=== PATIENT | male | born 1985 | race Caucasian/White ===

== ENCOUNTER 2017-01-02 19:36 | Inpatient (IN) | payer OTHER ==
[2017-01-02 20:05] VITALS: BMI 21.8
--- NOTE | 2017-01-02 22:30 | HP ---
COWS - Scale Resting Pulse: 0= [place] 80 or Below Sweatin= Chills/Flushing Restless Observation: 1= Difficult to Sit Still Pupil Size: 1= Pupils >than Normal Bone or Joint Aches: 1= Mild Discomfort Runny Nose/ Eye Tearin= Runny Nose/Eyes GI Upset > 30mins: 2= Nausea/Diarrhea Tremor Observation: 2= Slight Tremor Visible Yawning Observation: 2= >3x During Session Anxiety or Irritability: 2=Irritable/Anxious Goose Flesh Skin: 0=Smooth Skin COWS Score: 14 Admission ROS S - HPI Chief Complaint: WITHDRAWAL SYMPTOMS Allergies/Adverse Reactions: Allergies Allergy/AdvReac Type Severity Reaction Status Date / Time No Known Allergies Allergy Verified 07/03/12 03:34 History of Present Illness: 31 y.o. man with an extensive history of drug dependence is here seeking detox. He denies any recent rehab/detox admissions. He reports his longest period of abstinence has been 8 months. Exam Limitations: No Limitations - Ebola screening Have you traveled outside of the country in the last 21 days: No Have you had contact with anyone from an Ebola affected area: No Have you been sick,other than usual withdrawal symptoms: No Do you have a fever: No - Review of Systems Constitutional: Chills, Diaphoresis, Loss of Appetite, Unintentional Wgt. Loss EENT: reports: Tearing, Nose Congestion Respiratory: reports: No Symptoms reported Cardiac: reports: No Symptoms Reported GI: reports: Diarrhea, Indigestion, Abdominal cramping : reports: No Symptoms Reported Musculoskeletal: reports: Back Pain, Muscle Pain Integumentary: reports: No Symptoms Reported Neuro: reports: No Symptoms reported Endocrine: reports: No Symptoms Reported Hematology: reports: No Symptoms Reported Psychiatric: reports: Mood/Affect Appropiate, Anxious, Depressed Other Systems: Reviewed and Negative Patient History - Patient Medical History Hx Anemia: No Hx Asthma: No Hx Chronic Obstructive Pulmonary Disease (COPD): No Hx Cancer: No Hx Cardiac Disorders: No Hx Congestive Heart Failure: No Hx Hypertension: No Hx Hypercholesterolemia: No Hx Pacemaker: No HX Cerebrovascular Accident: No Hx Seizures: No Hx Dementia: No Hx Diabetes: No Hx Gastrointestinal Disorders: Yes (Dyspepsia ) Hx Liver Disease: No Hx Genitourinary Disorders: No Hx Sexually Transmitted Disorders: No Hx Renal Disease (ESRD): No Hx Thyroid Disease: No Hx Human Immunodeficiency Virus (HIV): No Hx Hepatitis C: No Hx Depression: Yes Hx Suicide Attempt: No Hx Bipolar Disorder: No Hx Schizophrenia: No - Patient Surgical History Past Surgical History: Yes Hx Appendectomy: Yes (2016) Anesthesia Reaction: No - PPD History Previous Implant?: Yes Documented Results: Negative w/o proof Date: 07/05/12 PPD to be Administered?: Yes - Reproductive History Patient is a Female of Child Bearing Age (11 -55 yrs old): No - Smoking Cessation Smoking history: Current every day smoker Have you smoked in the past 12 months: Yes Aproximately how many cigarettes per day: 30 Hx Chewing Tobacco Use: No Initiated information on smoking cessation: Yes 'Breaking Loose' booklet given: 01/02/17 - Substance & Tx. History Hx Alcohol Use: No Hx Substance Use: Yes Substance Use Type: Cocaine, Heroin, Marijuana Hx Substance Use Treatment: Yes (Denies recent detox/rehab services ) - Substances Abused Heroin Route: Injection Frequency: Daily Amount used: 2-3 bundles Age of first use: 24 Date of Last Use: 01/02/17 Cocaine Route: Smoking Frequency: 3-6 times per week Amount used: 1gm Age of first use: 18 Date of Last Use: 01/01/17 Marijuana/Hashish Route: Smoking Frequency: 1-3 times last 30 days Amount used: 1gm Age of first use: 14 Date of Last Use: 12/31/16 Family Disease History - Family Disease History Family Disease History: Diabetes: Mother, Heart Disease: Mother, CA: Father Admission Physical Exam S - Vital Signs Vital Signs: Vital Signs - 24 hr 01/02/17 20:03 Temperature 97.4 F L Pulse Rate 72 Respiratory 20 Rate Blood Pressure 136/71 - Physical General Appearance: Yes: No Apparent Distress, Nourished, Appropriately Dressed HEENTM: Yes: Hearing grossly Normal, Normal ENT Inspection, Normocephalic, Normal Voice Respiratory: Yes: Chest Non-Tender, Lungs Clear, Normal Breath Sounds, No Respiratory Distress, No Accessory Muscle Use Neck: Yes: No masses,lesions,Nodules, Trachea in good position Breast: Yes: Breast Exam Deferred Cardiology: Yes: Regular Rhythm, Regular Rate Abdominal: Yes: Normal Bowel Sounds, Non Tender Genitourinary: Yes: Other (No complaints reporte) Back: Yes: Normal Inspection Musculoskeletal: Yes: full range of Motion, Gait Steady, Pelvis Stable, Back pain Extremities: Yes: Normal Capillary Refill, Normal Inspection Neurological: Yes: pin drafter II-XII NML intact, Fully Oriented, Alert, Normal Mood/ Affect, Normal Response Integumentary: Yes: Normal Color, Dry, Warm, Track [place] Lymphatic: Yes: Within Normal Limits - Diagnostic (1) Cannabis dependence Current Visit: Yes Status: Acute (2) Cocaine dependence Current Visit: Yes Status: Acute (3) Opioid dependence with withdrawal Current Visit: Yes Status: Chronic (4) Nicotine dependence Current Visit: Yes Status: Chronic Cleared for Admission [facility] - Detox or Rehab [facility] Level of Care: Medically Managed Detox Regimen/Protocol: Methadone [facility] Breath Alcohol Content Breath Alcohol Content: 0 Urine Drug Screen - Results Drug Screen Negative: No Urine Drug Screen Results: THC-Marijuana, OTTO-Cocaine, OPI-Opiates
[2017-01-02] MEDS ORDERED: MENTHOL/PHENOL 1 EACH UD MM PRN (22:42)
[2017-01-02] MEDS ORDERED: ACETAMINOPHEN 325 MG TABLET (FP) PO PRN (22:42)
[2017-01-02] MEDS ORDERED: LOPERAMIDE HCL 2 MG CAPSULE PO PRN (22:42)
[2017-01-02] MEDS ORDERED: MAG HYDROX/AL HYDROX/SIMETH 30 ML UNIT-DOSE CUP PO PRN (22:42)
[2017-01-02] MEDS ORDERED: guaiFENesin/D-METHORPHAN HB 10 ML UNIT-DOSE CUPS PO PRN (22:42)
[2017-01-02] MEDS ORDERED: P-EPHED 60MG/TRIPROLIDI 2.5MG TABLET PO PRN (22:42)
[2017-01-02] MEDS ORDERED: MAGNESIUM CITRATE 300 ML BOTTLE PO PRN (22:42)
[2017-01-02] MEDS ORDERED: IBUPROFEN 400 MG TABLET (FP) PO PRN (22:42)
[2017-01-02] MEDS ORDERED: hydrOXYzine PAMOATE 50 MG CAPSULE (FP) PO PRN (22:42)
[2017-01-02] MEDS ORDERED: MAGNESIUM HYDROX 2400MG/30ML ORAL SUSPENSION 30 ML CUP PO PRN (22:42)
[2017-01-02] MEDS ORDERED: METHADONE HCL 10 MG TABLET (FOR DETOX USE ONLY) PO ONE ×2 (23:00→23:54)
[2017-01-03] MEDS: diazePAM 5 MG TABLET PO PRN ×4 (00:02→21:14)
[2017-01-03 02:26] LABS: URINE APPEARANCE CLEAR; URINE BILIRUBIN NEGATIVE (NEGATIVE); URINE BLOOD NEGATIVE (NEGATIVE); URINE COLOR YELLOW; URINE GLUCOSE (UA) NEGATIVE (NEGATIVE); URINE KETONE NEGATIVE (NEGATIVE); URINE LEUK ESTERASE NEGATIVE (NEGATIVE); URINE NITRITE NEGATIVE (NEGATIVE); URINE PROTEIN NEGATIVE (NEGATIVE); URINE UROBILINOGEN NEGATIVE mg/dL (0.2-1.0)
--- NOTE | 2017-01-03 08:49 | PN ---
BHS COWS - Scale Resting Pulse: 0= [place] 80 or Below Sweatin=Flushed/Facial Moisture Restless Observation: 1= Difficult to Sit Still Pupil Size: 0= Normal to Room Light Bone or Joint Aches: 2= Severe Diffuse Aches Runny Nose/ Eye Tearin= Runny Nose/Eyes GI Upset > 30mins: 0= None Tremor Observation of Outstretched Hands: 2= Slight Tremor Visible Yawning Observation: 2= >3x During Session Anxiety or Irritability: 2=Irritable/Anxious Goose Flesh Skin: 0=Smooth Skin COWS Score: 13 BHS Progress Note (SOAP) Subjective: anxiety sweats mild shakes interrupted sleep Objective: 01/03/17 10:07 Vital Signs Temperature 98.1 F 01/03/17 06:28 Pulse Rate 60 01/03/17 06:28 Respiratory Rate 18 01/03/17 06:28 Blood Pressure 109/56 01/03/17 06:28 O2 Sat by Pulse Oximetry (%) Laboratory Tests 01/02/17 20:00 Urine Color Yellow Urine Appearance Clear Urine pH 5.0 Urine Protein Negative Urine Glucose (UA) Negative Urine Ketones Negative Urine Blood Negative Urine Nitrite Negative Urine Bilirubin Negative Urine Urobilinogen Negative Ur Leukocyte Esterase Negative rest of labs pending awake/alert ambulating no acute distress Assessment: 01/03/17 10:07 withdrawal sx Plan: continue detox increase fluids labs pending
[2017-01-03] MEDS ORDERED: METHADONE HCL 10 MG TABLET (FOR DETOX USE ONLY) PO ONE (10:00)
[2017-01-03] MEDS: PRENATAL VITAMINS W/ FOLIC ACID TABLET (FP) PO SCH (10:01)
[2017-01-03] MEDS: NICOTINE 21 MG/24 HOURS TOPICAL PATCH TD SCH (10:02)
[2017-01-03 10:21] LABS: MCHC 34.2 g/dl (32.0-35.9); MEAN CELL VOLUME 84.8 fl (80-96); MEAN PLT VOLUME 7.9 fl (7.5-11.1); PLATELET COUNT 247 K/MM3 (134-434); WHITE BLOOD COUNT 6.5 K/mm3 (4.0-10.0)
[2017-01-03 10:40] LABS: ALBUMIN 3.4 g/dl (3.4-5.0); ANION GAP 7 (8-16); CALCIUM 8.9 mg/dL (8.5-10.1); CO2 29 mmol/L (21-32); GLUCOSE,RANDOM 101 mg/dL (74-106)
[2017-01-03 10:45] LABS: ALK PHOS 47 U/L (45-117); BILIRUBIN,TOTAL 0.5 mg/dL (0.2-1.0); CREATININE 0.9 mg/dL (0.7-1.3); SGOT/AST 10 U/L (15-37); SGPT/ALT 15 U/L (12-78); TOT PROT 6.3 g/dl (6.4-8.2)
[2017-01-03 11:28] LABS: HIV 1 & 2 AB NEGATIVE; HIV 1 AGp24 NEGATIVE
--- NOTE | 2017-01-03 12:26 | EKG ---
Test Reason : Blood Pressure : / mmHG Vent. Rate : 066 BPM Atrial Rate : 066 BPM P-R Int : 148 ms QRS Dur : 090 ms QT Int : 410 ms P-R-T Axes : 074 078 063 degrees QTc Int : 429 ms NORMAL SINUS RHYTHM WITH SINUS ARRHYTHMIA MINIMAL VOLTAGE CRITERIA FOR LVH, MAY BE NORMAL VARIANT BORDERLINE ECG NO PREVIOUS ECGS AVAILABLE Confirmed by KANE PERALTA, LY ([id number]) on 01/03/2017 12:26:04 PM Referred By: Confirmed By:LY MIDDLETON MD
--- NOTE | 2017-01-03 16:00 | CONSULT ---
[facility] Psychiatric Consult - Data Date of interview: 01/03/17 Admission source: [facility] Identifying data: Readmission to [facility] for this 31 y/o male seeking detox treatment on for heroin dependence.Patient is single without children,domiciled,unemployed and supported by relatives. Substance Abuse History: This section of [facility] report is discussed with the patient in this interview.He confirmed the data. - Smoking Cessation. Smoking history: Current every day smoker. Have you smoked in the past 12 months: Yes. Aproximately how many cigarettes per day: 30. Hx Chewing Tobacco Use: No. Initiated information on smoking cessation: Yes. 'Breaking Loose' booklet given : 01/02/17. - Substance & Tx. History. Hx Alcohol Use: No. Hx Substance Use: Yes. Substance Use Type: Cocaine, Heroin, Marijuana. Hx Substance Use Treatment: Yes (Denies recent detox/rehab services ). - Substances Abused. Heroin. Route: Injection. Frequency: Daily. Amount used: 2-3 bundles. Age of first use: 24. Date of Last Use: 01/02/17. Cocaine. Route: Smoking. Frequency: 3-6 times per week. Amount used: 1gm. Age of first use: 18. Date of Last Use: 01/01/17. Marijuana/Hashish. Route: Smoking. Frequency: 1-3 times last 30 days. Amount used: 1gm. Age of first use: 14. Date of Last Use : 12/31/16 Medical History: Patient endorses good general health. Psychiatric History: Patient denies history of psychiatric hospitalizations.He indicates,however,that he is prescribed paxil and klonopin (from a primary care physician).Diagnosed with MDD.Mr Iraheta is known to Dr Chand ([facility]) .Patient denies history of suicide attempts. Physical/Sexual Abuse/Trauma History: Patient denies. Additional Comment: Urine Drug Screen Results: THC-Marijuana, OTTO-Cocaine, OPI- Opiates.Noted. Mental Status Exam - Mental Status Exam Alert and Oriented to: Time, Place, Person Cognitive Function: Good Patient Appearance: Well Groomed Mood: Hopeful, Euthymic Affect: Appropriate, Normal Range Patient Behavior: Fatigued, Appropriate, Cooperative Speech Pattern: Clear Voice Loudness: Normal Thought Process: Goal Oriented Thought Disorder: Not Present Hallucinations: Denies Suicidal Ideation: Denies Homicidal Ideation: Denies Insight/Judgement: Poor Sleep: Well Appetite: Good Muscle strength/Tone: Normal Gait/Station: Normal Psychiatric Findings - Problem List ([place] 1, 2,3) (1) Cocaine dependence Current Visit: Yes Status: Acute (2) Opioid dependence with withdrawal Current Visit: Yes Status: Acute (3) Cannabis dependence Current Visit: Yes Status: Acute (4) Nicotine dependence Current Visit: Yes Status: Acute (5) Depressive disorder Current Visit: Yes Status: Chronic Comment: History reported by patient.On medications. - Initial Treatment Plan Initial Treatment Plan: Psychoeducation.Detoxification.Paxil 20 mg po daily.Patient is informed of potential for sexual dysfunction and suicidal ideation.He endorses paxil as well tolerated and efficacious.Wants to stay on that drug.Observation.
[2017-01-03] MEDS: NICOTINE POLACRILEX 4 MG GUM BC PRN (19:44)
[2017-01-03] MEDS: diphenhydrAMINE HCL 50 MG CAPSULE PO PRN (21:14)
[2017-01-03] MEDS: THIAMINE HCL 100 MG TABLET (FP) PO SCH (21:14)
[2017-01-04] MEDS: diazePAM 5 MG TABLET PO PRN ×5 (03:08→21:35)
[2017-01-04] MEDS: NICOTINE 21 MG/24 HOURS TOPICAL PATCH TD SCH (09:59)
[2017-01-04] MEDS: PRENATAL VITAMINS W/ FOLIC ACID TABLET (FP) PO SCH (09:59)
[2017-01-04] MEDS ORDERED: METHADONE HCL 5 MG TABLET (FOR DETOX USE ONLY) PO ONE (10:00)
[2017-01-04] MEDS: PARoxetine HCL 20 MG TABLET (FP) PO SCH (10:01)
--- NOTE | 2017-01-04 11:23 | PN ---
BHS COWS - Scale Resting Pulse: 0= [place] 80 or Below Sweatin=Flushed/Facial Moisture Restless Observation: 0= Sits Still Pupil Size: 0= Normal to Room Light Bone or Joint Aches: 1= Mild Discomfort Runny Nose/ Eye Tearin= Runny Nose/Eyes GI Upset > 30mins: 1= Stomach Cramp Tremor Observation of Outstretched Hands: 2= Slight Tremor Visible Yawning Observation: 2= >3x During Session Anxiety or Irritability: 2=Irritable/Anxious Goose Flesh Skin: 3=Piloerection COWS Score: 15 BHS Progress Note (SOAP) Subjective: Stomach Cramping, Interrupted sleep, Sweating. Objective: PT. A & O X 3. NO ACUTE DISTRESS. 01/04/17 11:19 Vital Signs Temperature 99.0 F 01/04/17 10:00 Pulse Rate 75 01/04/17 10:00 Respiratory Rate 16 01/04/17 10:00 Blood Pressure 138/68 01/04/17 10:00 O2 Sat by Pulse Oximetry (%) Laboratory Tests 01/02/17 01/02/17 01/03/17 06:30 20:00 06:30 WBC 6.5 RBC 3.75 L D Hgb 10.9 L D Hct 31.8 L D MCV 84.8 MCH 29.0 MCHC 34.2 RDW 13.0 Plt Count 247 MPV 7.9 D Sodium Potassium Chloride Carbon Dioxide Anion Gap BUN Creatinine Creat Clearance w eGFR Random Glucose Calcium Total Bilirubin AST ALT Alkaline Phosphatase Total Protein Albumin Urine Color Yellow Urine Appearance Clear Urine pH 5.0 Ur Specific [place] 1.025 Urine Protein Negative Urine Glucose (UA) Negative Urine Ketones Negative Urine Blood Negative Urine Nitrite Negative Urine Bilirubin Negative Urine Urobilinogen Negative Ur Leukocyte Esterase Negative RPR Titer Hepatitis C Antibody <0.1 HIV 1&2 Antibody Screen HIV P24 Antigen 01/03/17 01/03/17 01/03/17 06:30 06:30 06:30 WBC RBC Hgb Hct MCV MCH MCHC RDW Plt Count MPV Sodium 142 Potassium 4.4 Chloride 106 Carbon Dioxide 29 Anion Gap 7 L BUN 14 Creatinine 0.9 Creat Clearance w eGFR > 60 Random Glucose 101 Calcium 8.9 Total Bilirubin 0.5 AST 10 L D ALT 15 D Alkaline Phosphatase 47 D Total Protein 6.3 L D Albumin 3.4 D Urine Color Urine Appearance Urine pH Ur Specific [place] Urine Protein Urine Glucose (UA) Urine Ketones Urine Blood Urine Nitrite Urine Bilirubin Urine Urobilinogen Ur Leukocyte Esterase RPR Titer Nonreactive Hepatitis C Antibody HIV 1&2 Antibody Screen Negative HIV P24 Antigen Negative LABS NOTED. Assessment: 01/04/17 11:20 WITHDRAWAL SYMPTOMS. Plan: CONTINUE DETOX. FERROUS SULFATE, 325 MG PO BID WITH MEALS.
[2017-01-04] MEDS: FERROUS SO4 325 MG TABLET (FP) PO SCH (16:58)
[2017-01-04] MEDS: NICOTINE POLACRILEX 4 MG GUM BC PRN (16:59)
[2017-01-04] MEDS: THIAMINE HCL 100 MG TABLET (FP) PO SCH (21:35)
[2017-01-04] MEDS: diphenhydrAMINE HCL 50 MG CAPSULE PO PRN (21:35)
[2017-01-05] MEDS: diazePAM 5 MG TABLET PO PRN ×4 (05:38→22:25)
[2017-01-05] MEDS: FERROUS SO4 325 MG TABLET (FP) PO SCH ×2 (08:46→17:42)
[2017-01-05] MEDS ORDERED: METHADONE HCL 5 MG TABLET (FOR DETOX USE ONLY) PO ONE (10:00)
[2017-01-05] MEDS: PARoxetine HCL 20 MG TABLET (FP) PO SCH (10:11)
[2017-01-05] MEDS: PRENATAL VITAMINS W/ FOLIC ACID TABLET (FP) PO SCH (10:11)
[2017-01-05] MEDS: NICOTINE 21 MG/24 HOURS TOPICAL PATCH TD SCH (10:11)
[2017-01-05] MEDS: NICOTINE POLACRILEX 4 MG GUM BC PRN ×2 (10:14→22:48)
--- NOTE | 2017-01-05 11:23 | PN ---
BHS Progress Note (SOAP) Subjective: sweats interrupted sleep anxious Objective: 01/05/17 11:23 Vital Signs Temperature 97.9 F 01/05/17 10:00 Pulse Rate 100 H 01/05/17 10:00 Respiratory Rate 20 01/05/17 10:00 Blood Pressure 121/76 01/05/17 10:00 O2 Sat by Pulse Oximetry (%) awake/alert ambulating no acute distress Assessment: 01/05/17 11:23 withdrawal sx Plan: continue detox increase fluids
[2017-01-05] MEDS: THIAMINE HCL 100 MG TABLET (FP) PO SCH (22:25)
[2017-01-05] MEDS: diphenhydrAMINE HCL 50 MG CAPSULE PO PRN (22:25)
[2017-01-06] MEDS: FERROUS SO4 325 MG TABLET (FP) PO SCH ×2 (08:16→17:16)
[2017-01-06] MEDS ORDERED: METHADONE HCL 10 MG TABLET (FOR DETOX USE ONLY) PO ONE (10:00)
[2017-01-06] MEDS: PRENATAL VITAMINS W/ FOLIC ACID TABLET (FP) PO SCH (10:04)
[2017-01-06] MEDS: PARoxetine HCL 20 MG TABLET (FP) PO SCH (10:05)
[2017-01-06] MEDS: NICOTINE 21 MG/24 HOURS TOPICAL PATCH TD SCH (10:06)
[2017-01-06] MEDS: NICOTINE POLACRILEX 4 MG GUM BC PRN ×3 (10:07→19:37)
--- NOTE | 2017-01-06 14:09 | PN ---
BHS Progress Note (SOAP) Subjective: Sweating,interrupted sleep,restless Objective: 01/06/17 14:08 Vital Signs - 8 hr 01/06/17 09:51 Temperature 97.7 F Pulse Rate 90 Respiratory 16 Rate Blood Pressure 121/78 Laboratory Last Values WBC 6.5 K/mm3 (4.0-10.0) 01/03/17 06:30 RBC 3.75 M/mm3 (4.00-5.60) L D 01/03/17 06:30 Hgb 10.9 GM/dL (11.7-16.9) L D 01/03/17 06:30 Hct 31.8 % (35.4-49) L D 01/03/17 06:30 MCV 84.8 fl (80-96) 01/03/17 06:30 MCH 29.0 pg (25.7-33.7) 01/03/17 06:30 MCHC 34.2 g/dl (32.0-35.9) 01/03/17 06:30 RDW 13.0 % (11.9-15.9) 01/03/17 06:30 Plt Count 247 K/MM3 (134-434) 01/03/17 06:30 MPV 7.9 fl (7.5-11.1) D 01/03/17 06:30 Sodium 142 mmol/L (136-145) 01/03/17 06:30 Potassium 4.4 mmol/L (3.5-5.1) 01/03/17 06:30 Chloride 106 mmol/L (98-107) 01/03/17 06:30 Carbon Dioxide 29 mmol/L (21-32) 01/03/17 06:30 Anion Gap 7 (8-16) L 01/03/17 06:30 BUN 14 mg/dL (7-18) 01/03/17 06:30 Creatinine 0.9 mg/dL (0.7-1.3) 01/03/17 06:30 Creat Clearance w eGFR > 60 (>60) 01/03/17 06:30 Random Glucose 101 mg/dL (74-106) 01/03/17 06:30 Calcium 8.9 mg/dL (8.5-10.1) 01/03/17 06:30 Total Bilirubin 0.5 mg/dL (0.2-1.0) 01/03/17 06:30 AST 10 U/L (15-37) L D 01/03/17 06:30 ALT 15 U/L (12-78) D 01/03/17 06:30 Alkaline Phosphatase 47 U/L (45-117) D 01/03/17 06:30 Total Protein 6.3 g/dl (6.4-8.2) L D 01/03/17 06:30 Albumin 3.4 g/dl (3.4-5.0) D 01/03/17 06:30 Urine Color Yellow 01/02/17 20:00 Urine Appearance Clear 01/02/17 20:00 Urine pH 5.0 (5.0-8.0) 01/02/17 20:00 Ur Specific [place] 1.025 (1.005-1.025) 01/02/17 20:00 Urine Protein Negative (NEGATIVE) 01/02/17 20:00 Urine Glucose (UA) Negative (NEGATIVE) 01/02/17 20:00 Urine Ketones Negative (NEGATIVE) 01/02/17 20:00 Urine Blood Negative (NEGATIVE) 01/02/17 20:00 Urine Nitrite Negative (NEGATIVE) 01/02/17 20:00 Urine Bilirubin Negative (NEGATIVE) 01/02/17 20:00 Urine Urobilinogen Negative mg/dL (0.2-1.0) 01/02/17 20:00 Ur Leukocyte Esterase Negative (NEGATIVE) 01/02/17 20:00 RPR Titer Nonreactive (NONREACTIVE) 01/03/17 06:30 Hepatitis C Antibody <0.1 s/co ratio (0.0-0.9) 01/02/17 06:30 HIV 1&2 Antibody Screen Negative 01/03/17 06:30 HIV P24 Antigen Negative 01/03/17 06:30 labs noted Assessment: 01/06/17 14:09 Withdrawal sx. Plan: Continue detox
[2017-01-06] MEDS: THIAMINE HCL 100 MG TABLET (FP) PO SCH (22:05)
[2017-01-06] MEDS: diphenhydrAMINE HCL 50 MG CAPSULE PO PRN (22:05)
[2017-01-07] MEDS ORDERED: METHADONE HCL 5 MG TABLET (FOR DETOX USE ONLY) PO ONE (06:00)
[2017-01-07] MEDS: FERROUS SO4 325 MG TABLET (FP) PO SCH (08:20)
--- NOTE | 2017-01-07 09:07 | DS ---
[facility] Detox Discharge Summary Admission Date: 01/02/17 Discharge Date: 01/07/17 - History Present History: Cannabis Dependence, Cocaine Dependence, Opioid Dependence Pertinent Past History: Mood disorder - Physical Exam Results Vital Signs: Vital Signs Temperature 97.9 F 01/07/17 06:00 Pulse Rate 67 01/07/17 06:00 Respiratory Rate 18 01/07/17 06:00 Blood Pressure 132/75 01/07/17 06:00 O2 Sat by Pulse Oximetry (%) Pertinent Admission Physical Exam Findings: Withdrawal sx. Laboratory Last Values WBC 6.5 K/mm3 (4.0-10.0) 01/03/17 06:30 RBC 3.75 M/mm3 (4.00-5.60) L D 01/03/17 06:30 Hgb 10.9 GM/dL (11.7-16.9) L D 01/03/17 06:30 Hct 31.8 % (35.4-49) L D 01/03/17 06:30 MCV 84.8 fl (80-96) 01/03/17 06:30 MCH 29.0 pg (25.7-33.7) 01/03/17 06:30 MCHC 34.2 g/dl (32.0-35.9) 01/03/17 06:30 RDW 13.0 % (11.9-15.9) 01/03/17 06:30 Plt Count 247 K/MM3 (134-434) 01/03/17 06:30 MPV 7.9 fl (7.5-11.1) D 01/03/17 06:30 Sodium 142 mmol/L (136-145) 01/03/17 06:30 Potassium 4.4 mmol/L (3.5-5.1) 01/03/17 06:30 Chloride 106 mmol/L (98-107) 01/03/17 06:30 Carbon Dioxide 29 mmol/L (21-32) 01/03/17 06:30 Anion Gap 7 (8-16) L 01/03/17 06:30 BUN 14 mg/dL (7-18) 01/03/17 06:30 Creatinine 0.9 mg/dL (0.7-1.3) 01/03/17 06:30 Creat Clearance w eGFR > 60 (>60) 01/03/17 06:30 Random Glucose 101 mg/dL (74-106) 01/03/17 06:30 Calcium 8.9 mg/dL (8.5-10.1) 01/03/17 06:30 Total Bilirubin 0.5 mg/dL (0.2-1.0) 01/03/17 06:30 AST 10 U/L (15-37) L D 01/03/17 06:30 ALT 15 U/L (12-78) D 01/03/17 06:30 Alkaline Phosphatase 47 U/L (45-117) D 01/03/17 06:30 Total Protein 6.3 g/dl (6.4-8.2) L D 01/03/17 06:30 Albumin 3.4 g/dl (3.4-5.0) D 01/03/17 06:30 Urine Color Yellow 01/02/17 20:00 Urine Appearance Clear 01/02/17 20:00 Urine pH 5.0 (5.0-8.0) 01/02/17 20:00 Ur Specific [place] 1.025 (1.005-1.025) 01/02/17 20:00 Urine Protein Negative (NEGATIVE) 01/02/17 20:00 Urine Glucose (UA) Negative (NEGATIVE) 01/02/17 20:00 Urine Ketones Negative (NEGATIVE) 01/02/17 20:00 Urine Blood Negative (NEGATIVE) 01/02/17 20:00 Urine Nitrite Negative (NEGATIVE) 01/02/17 20:00 Urine Bilirubin Negative (NEGATIVE) 01/02/17 20:00 Urine Urobilinogen Negative mg/dL (0.2-1.0) 01/02/17 20:00 Ur Leukocyte Esterase Negative (NEGATIVE) 01/02/17 20:00 RPR Titer Nonreactive (NONREACTIVE) 01/03/17 06:30 Hepatitis C Antibody <0.1 s/co ratio (0.0-0.9) 01/02/17 06:30 HIV 1&2 Antibody Screen Negative 01/03/17 06:30 HIV P24 Antigen Negative 01/03/17 06:30 labs noted - Treatment Hospital Course: Detox Protocol Followed, Detoxed Safely, Responded well, Discharged Condition Good, Rehab Referral Accepted Patient has Accepted a Rehab Referral to: [facility] - Medication Discharge Medications: Ambulatory Orders Clonazepam [Klonopin -] 2 mg PO BID 01/02/17 Paroxetine HCl [Paxil -] 20 mg PO BID 01/02/17 Paroxetine HCl [Paxil] 20 mg PO DAILY #30 tablet 01/03/17 - Diagnosis (1) Cannabis dependence Current Visit: Yes Status: Acute (2) Cocaine dependence Current Visit: Yes Status: Acute (3) Nicotine dependence Current Visit: Yes Status: Acute Qualifiers: Nicotine product type: cigarettes Substance use status: uncomplicated Qualified Code(s): F17.210 - Nicotine dependence, cigarettes, uncomplicated (4) Opioid dependence with withdrawal Current Visit: Yes Status: Acute (5) Depressive disorder Current Visit: Yes Status: Chronic - AMA Did Patient Leave Against Medical Advice: No
[2017-01-07] MEDS: PRENATAL VITAMINS W/ FOLIC ACID TABLET (FP) PO SCH (09:42)
[2017-01-07] MEDS: PARoxetine HCL 20 MG TABLET (FP) PO SCH (09:42)
[2017-01-07 11:19] VITALS: BP 142/60; PULSE 76; TEMP 96.6
== END 2017-01-07 09:50 | disposition home or self-care (01) | DRG 773 ==
LOC: YASAS 19:36 → Y6N 22:53
PROVIDERS: ADMIT Internal Medicine; ATTEND Internal Medicine
PROC: HZ2ZZZZ Detoxification Services for Substance Abuse Treatment (ICD-10-PCS; principal; 2017-01-07)
DX: F11.23 Opioid dependence with withdrawal (principal); F14.20 Cocaine dependence, uncomplicated; F12.20 Cannabis dependence, uncomplicated; F17.210 Nicotine dependence, cigarettes, uncomplicated; F33.9 Major depressive disorder, recurrent, unspecified
CPT/HCPCS: 36415; 80053; 81003; 85027; 86593; 86803; 87389; 93005; 93010